=== PATIENT | female | born 1985 | race Caucasian/White ===

== ENCOUNTER 2017-05-28 17:32 | Inpatient (IN) | payer BC ==
[2017-05-28 19:42] LABS: ADD UMIC YES; UR ASCORBIC ACID NEGATIVE (NEGATIVE); UR BACTERIA FEW /HPF (NONE SEEN); UR BILIRUBIN (Dip) NEGATIVE (NEGATIVE); UR BLOOD (Dip) 1+ mg/dL (NEGATIVE); UR CLARITY CLEAR (CLEAR); UR COLOR STRAW (YELLOW); UR GLUCOSE (Dip) NEGATIVE (NEGATIVE); UR KETONES (Dip) NEGATIVE (NEGATIVE); UR LEUKOCYTE ESTERASE (Dip) NEGATIVE Leu/ul (NEGATIVE); UR NITRITE (Dip) NEGATIVE (NEGATIVE); UR RBC 1 /HPF (0-5); UR SPECIFIC GRAVITY (Dip) 1.004 (1.003-1.030); UR SQUAMOUS EPITHELIAL CELL FEW /HPF (FEW); UR TOTAL PROTEIN (Dip) NEGATIVE (NEGATIVE); UR UROBILINOGEN (Dip) NEGATIVE (NEGATIVE); UR WBC 1 /HPF (0-5)
[2017-05-28] MEDS: TERBUTALINE 1 MG/ML INJ SC (20:13)
[2017-05-28] MEDS ORDERED: AL HYDROX/MG HYDROX/SIMETH 30 ML CUP PO (23:00)
[2017-05-28] MEDS ORDERED: ACETAMINOPHEN 325 MG TAB PO (23:00)
[2017-05-28] MEDS: LACTATED RINGER'S 1,000 ML IV (23:40)
[2017-05-29] MEDS: BETAMET NA PHOS/AC(6 MG/ML) 5ML INJ IM (00:26)
[2017-05-29 00:35] LABS: ADD MAN DIFF? NO
[2017-05-29 00:38] LABS: WHITE BLOOD COUNT 15.9 10^3/ul (4.8-10.8)
[2017-05-29 00:38] LABS: BASOPHIL # 0.1 10^3/ul (0.0-0.1); BASOPHILS % 0.4 % (0.0-2.0); EOSINOPHILS # 0.1 10^3/ul (0.0-0.5); EOSINOPHILS % 0.6 % (0.0-7.0); HEMOGLOBIN 11.8 g/dl (12.0-16.0); LYMPHOCYTES # 2.5 10^3/ul (0.8-2.9); LYMPHOCYTES % 15.8 % (15.0-51.0); MEAN CORPUSCULAR HEMOGLOBIN 31.6 pg (29.0-33.0); MEAN CORPUSCULAR HGB CONC 34.7 g/dl (32.0-37.0); MEAN CORPUSCULAR VOLUME 90.9 fl (82.0-101.0); MEAN PLATELET VOLUME 10.5 fl (7.4-10.4); MONOCYTES % 6.5 % (0.0-11.0); NEUTROPHIL # 11.9 10^3/ul (1.6-7.5); NEUTROPHILS % 74.8 % (39.0-77.0); PLATELET COUNT 247 10^3/UL (140-415); RED BLOOD COUNT 3.74 10^6/ul (4.20-5.40); RED CELL DISTRIBUTION WIDTH 13.3 % (11.5-14.5)
[2017-05-29 00:55] LABS: INR 1.03; PROTIME 13.6 Sec (11.9-14.9); PT RATIO 1.1
[2017-05-29 00:56] LABS: PARTIAL THROMBOPLASTIN TIME 31.4 Sec (25.0-35.0)
[2017-05-29] MEDS: LACTATED RINGER'S 1,000 ML IV ×3 (04:41→19:34)
[2017-05-29] MEDS: PRENATAL VITAMIN PO (09:07)
[2017-05-29] MEDS: FERROUS SULFATE (EC) 325 MG TAB PO (09:07)
[2017-05-29 12:32] LABS: AMPHETAMINE/METHAMPHETAMINE Negative (NEGATIVE); BARBITURATES Negative (NEGATIVE); BENZODIAZEPINES Negative (NEGATIVE); CANNABINOIDS Negative (NEGATIVE); COCAINE Negative (NEGATIVE); OPIATES Negative (NEGATIVE)
[2017-05-29] MEDS: CEPHALEXIN 500 MG CAP PO ×2 (14:00→22:06)
[2017-05-29 21:31] LABS: RAPID PLASMA REAGIN NONREACTIVE (NR)
[2017-05-30] MEDS: BETAMET NA PHOS/AC(6 MG/ML) 5ML INJ IM (00:35)
[2017-05-30] MEDS: LACTATED RINGER'S 1,000 ML IV (03:20)
[2017-05-30] MEDS: CEPHALEXIN 500 MG CAP PO (06:04)
== END 2017-05-30 08:45 | disposition home or self-care (01) | DRG 781 ==
LOC: OBT 17:32 → L-D 17:32 → PP1 05-29 20:22 → OBT 22:40 → L-D 22:40
DX: O23.43 Unspecified infection of urinary tract in pregnancy, third trimester (principal); O47.03 False labor before 37 completed weeks of gestation, third trimester; Z3A.35 35 weeks gestation of pregnancy
CPT/HCPCS: 76818; 80307; 81001; 85025; 85610; 85730; 86592; 86850; 86900; 86901; 87086

== ENCOUNTER 2017-06-24 01:20 | Inpatient (IN) | payer BC ==
[2017-06-24] MEDS ORDERED: LACTATED RINGER'S 1,000 ML IV ×2 (01:55→03:01)
[2017-06-24] MEDS ORDERED: OXYTOCIN 30 UNITS/LR 500 ML IV ×3 (02:00→09:30)
[2017-06-24] MEDS ORDERED: BUTORPHANOL 1 MG INJ IV (02:00)
[2017-06-24] MEDS ORDERED: MISOPROSTOL 200 MCG TAB PR ×2 (02:00→09:30)
[2017-06-24] MEDS ORDERED: METHYLERGONOVINE 0.2 MG INJ IM ×2 (02:00→09:30)
[2017-06-24] MEDS ORDERED: CARBOPROST 250 MCG INJ IM ×2 (02:00→09:30)
[2017-06-24] MEDS ORDERED: LIDOCAINE 1% (MPF) 30 ML INJ INJ (02:00)
[2017-06-24 02:04] LABS: ADD MAN DIFF? NO
[2017-06-24 02:09] LABS: WHITE BLOOD COUNT 14.5 10^3/ul (4.8-10.8)
[2017-06-24 02:09] LABS: BASOPHIL # 0.1 10^3/ul (0.0-0.1); BASOPHILS % 0.6 % (0.0-2.0); EOSINOPHILS # 0.2 10^3/ul (0.0-0.5); EOSINOPHILS % 1.3 % (0.0-7.0); HEMATOCRIT 37.7 % (37.0-47.0); HEMOGLOBIN 12.7 g/dl (12.0-16.0); LYMPHOCYTES # 4.3 10^3/ul (0.8-2.9); LYMPHOCYTES % 29.7 % (15.0-51.0); MEAN CORPUSCULAR HEMOGLOBIN 30.6 pg (29.0-33.0); MEAN CORPUSCULAR HGB CONC 33.7 g/dl (32.0-37.0); MEAN CORPUSCULAR VOLUME 90.8 fl (82.0-101.0); MEAN PLATELET VOLUME 10.1 fl (7.4-10.4); MONOCYTE # 1.1 10^3/ul (0.3-0.9); MONOCYTES % 7.3 % (0.0-11.0); NEUTROPHIL # 8.5 10^3/ul (1.6-7.5); NEUTROPHILS % 58.5 % (39.0-77.0); PLATELET COUNT 272 10^3/UL (140-415); RED BLOOD COUNT 4.15 10^6/ul (4.20-5.40); RED CELL DISTRIBUTION WIDTH 13.6 % (11.5-14.5)
[2017-06-24] MEDS: LACTATED RINGER'S 1,000 ML IV ×2 (02:15→03:47)
[2017-06-24] MEDS: AMPICILLIN 2 GM/NS (PMX) 100 ML IV (02:15)
[2017-06-24] MEDS: BUTORPHANOL 2 MG INJ IV (02:16)
[2017-06-24 02:29] LABS: PROTIME 12.2 Sec (11.9-14.9)
[2017-06-24 02:30] LABS: PARTIAL THROMBOPLASTIN TIME 28.4 Sec (25.0-35.0)
[2017-06-24 03:30] LABS: HEPATITIS B SURFACE ANTIGEN NEGATIVE (NEGATIVE)
[2017-06-24] MEDS ORDERED: IBUPROFEN 600 MG TAB PO (03:30)
[2017-06-24] MEDS ORDERED: OXYCODONE/ACETAMINOPHEN (5/325) TAB PO (03:30)
[2017-06-24] MEDS ORDERED: FENTAnyl 2MCG/ML-ROPIV 0.2% 100 ML (03:45)
[2017-06-24] MEDS ORDERED: NALOXONE (0.4 MG/ML) INJ IV (04:30)
[2017-06-24] MEDS ORDERED: FENTAnyl 2MCG/ML-ROPIV 0.2% 100 ML BAG EPI (04:30)
[2017-06-24] MEDS: AMPICILLIN 1 GM/NS (PMX) 50 ML IV (07:19)
[2017-06-24] MEDS ORDERED: SENNA/DOCUSATE NA (8.6MG/50MG) TAB PO (09:30)
[2017-06-24] MEDS ORDERED: OXYCODONE/ASPIRIN (4.88/325) TAB PO ×2 (09:30)
[2017-06-24] MEDS ORDERED: DIPHENHYDRAMINE 25 MG CAP PO (09:30)
[2017-06-24] MEDS ORDERED: ONDANSETRON 4 MG INJ IV (09:30)
[2017-06-24] MEDS ORDERED: NACL 0.9% 3 ML SYG IV (09:30)
[2017-06-24] MEDS: OXYTOCIN 30 UNITS/LR 500 ML IV ×3 (09:50→14:11)
[2017-06-24] MEDS: IBUPROFEN 600 MG TAB PO ×2 (13:00→17:50)
[2017-06-24] MEDS: WITCH HAZEL/GLYCERIN PAD PR (17:50)
[2017-06-24] MEDS: BENZOCAINE 20% 56 ML SPRAY TOP (17:51)
[2017-06-24] MEDS: LANOLIN 7 GM TUBE TOP (17:51)
[2017-06-24] MEDS: SENNA/DOCUSATE NA (8.6MG/50MG) TAB PO (20:43)
[2017-06-24 22:04] LABS: RAPID PLASMA REAGIN NONREACTIVE (NR)
[2017-06-25] MEDS: IBUPROFEN 600 MG TAB PO ×5 (06:07→23:47)
[2017-06-25 09:36] LABS: ADD MAN DIFF? NO
[2017-06-25 09:39] LABS: WHITE BLOOD COUNT 13.5 10^3/ul (4.8-10.8)
[2017-06-25 09:39] LABS: BASOPHIL # 0.1 10^3/ul (0.0-0.1); BASOPHILS % 0.5 % (0.0-2.0); EOSINOPHILS # 0.2 10^3/ul (0.0-0.5); EOSINOPHILS % 1.5 % (0.0-7.0); HEMATOCRIT 34.7 % (37.0-47.0); HEMOGLOBIN 11.5 g/dl (12.0-16.0); LYMPHOCYTES # 3.3 10^3/ul (0.8-2.9); LYMPHOCYTES % 24.6 % (15.0-51.0); MEAN CORPUSCULAR HEMOGLOBIN 30.7 pg (29.0-33.0); MEAN CORPUSCULAR HGB CONC 33.1 g/dl (32.0-37.0); MEAN CORPUSCULAR VOLUME 92.5 fl (82.0-101.0); MEAN PLATELET VOLUME 10.5 fl (7.4-10.4); MONOCYTE # 0.7 10^3/ul (0.3-0.9); MONOCYTES % 5.4 % (0.0-11.0); NEUTROPHIL # 8.9 10^3/ul (1.6-7.5); NEUTROPHILS % 66.1 % (39.0-77.0); PLATELET COUNT 236 10^3/UL (140-415); RED BLOOD COUNT 3.75 10^6/ul (4.20-5.40); RED CELL DISTRIBUTION WIDTH 14.1 % (11.5-14.5)
[2017-06-25] MEDS: SENNA/DOCUSATE NA (8.6MG/50MG) TAB PO ×2 (09:47→21:04)
[2017-06-25 13:03] LABS: RUBELLA ANTIBODY - IGG <0.90 index; RUBELLA ANTIBODY - IGM <20.00 AU/mL
[2017-06-26] MEDS: IBUPROFEN 600 MG TAB PO ×2 (05:30→12:00)
[2017-06-26] MEDS: SENNA/DOCUSATE NA (8.6MG/50MG) TAB PO (09:00)
== END 2017-06-26 14:18 | disposition home or self-care (01) | DRG 775 ==
LOC: OBT 01:20 → L-D 01:20 → OBT 01:45 → L-D 01:45 → PP1 12:57
PROVIDERS: Obstetrics & Gynecology
PROC: 10E0XZZ Delivery of Products of Conception, External Approach (ICD-10-PCS; principal; 2017-06-24)
PROC: 3E033VJ Introduction of Other Hormone into Peripheral Vein, Percutaneous Approach (ICD-10-PCS; 2017-06-24)
DX: O69.81X0 Labor and delivery complicated by cord around neck, without compression, not applicable or unspecified (principal); Z3A.39 39 weeks gestation of pregnancy; Z37.0 Single live birth
CPT/HCPCS: 62319; 85025; 85610; 85730; 86592; 86762; 86850; 86900; 86901; 87340; 99464